=== PATIENT | male | born 1935 | race Caucasian/White ===

== ENCOUNTER → 2021-01-19 | Outpatient (CLI) | payer MEDICARE, SELFPAY ==
--- NOTE | 2021-01-19 08:00 | PROSBIL_PTH ---
PATIENT: LISA WEAVER LOC: [facility] U#:[id number] AGE/SX: 85/M ROOM: RE01/19/[address]: Dr. Speedy Royal MD : 1935 BED: DIS: 01/19/2021 SPEC #: [id number] RECD: 01/19/21 10:34 STATUS: FRANCK RETiffany #: [id number] BRANDON: 01/19/21 08:[address]: Speedy Royal DEPT: SURGICAL PATHOLOGY RECD BY: Yuko Aly Tissues: A - PROSTATE RIGHT B - PROSTATE RIGHT C - PROSTATE RIGHT D - PROSTATE LEFT E - PROSTATE LEFT F - PROSTATE LEFT Procedures: PROSTATE BX HEADER OPERATION: Prostate biopsy PRE-OP DIAGNOSIS: R97.20 TISSUE SUBMITTED: A - Right apex, B - Right mid, C - Right base, D - Left apex, E - Left mid, F - Left base MICROSCOPIC DIAGNOSIS A. Right prostate, apex, core biopsy: Prostatic tissue, negative for malignancy. Focal minimal acute and chronic inflammation. B. Right prostate, mid, core biopsy: Focal high-grade prostatic intraepithelial neoplasia (HGPIN). C. Right prostate, base, core biopsy: Prostatic tissue, negative for malignancy. D. Left prostate, apex, core biopsy: Prostatic tissue, negative for malignancy. E. Left prostate, mid, core biopsy: Prostatic tissue, negative for malignancy. F. Left prostate, base, core biopsy: Focal high-grade prostatic intraepithelial neoplasia (HGPIN). SJ:bashir 01/23/2021 MICROSCOPIC DESCRIPTION Slides are reviewed. GROSS DESCRIPTION A - Received is one container designated prostate, right apex. The specimen consists of one elongated fragment of light bernard-white soft tissue measuring 1 cm in length and 0.1 cm in diameter. The specimen is totally submitted in one cassette. B - Received is one container designated prostate, right mid. The specimen consists of one elongated fragment of light bernard-white soft tissue measuring 0.5 cm in length and 0.1 cm in diameter. The specimen is totally submitted in one cassette. C - Received is one container designated prostate, right base. The specimen consists of one elongated fragment of light bernard-white soft tissue measuring 0.5 cm in length and 0.1 cm in diameter. The specimen is totally submitted in one cassette. D - Received is one container designated prostate, left apex. The specimen consists of one elongated fragment of light bernard-white soft tissue measuring 0.5 cm in length and 0.1 cm in diameter. The specimen is totally submitted in one cassette. E - Received is one container designated prostate, left mid. The specimen consists of one elongated fragment of light bernard-white soft tissue measuring 0.8 cm in length and 0.1 cm in diameter. The specimen is totally submitted in one cassette. F - Received is one container designated prostate, left base. The specimen consists of one elongated fragment of light bernard-white soft tissue measuring 0.7 cm in length and 0.1 cm in diameter. The specimen is totally submitted in one cassette. / ABHILASH:bashir 01/19/21 TC:5 CPT: G0146
== END | disposition home or self-care (01) ==
LOC: LABSPEC 12:06
PROVIDERS: Referring Provider Urology; Visit Provider Urology
DX: R97.20 Elevated prostate specific antigen [PSA] (principal)
CPT/HCPCS: 88305; G0416

== ENCOUNTER 2022-05-24 07:26 | Day surgery (SDC) | payer MEDICARE, SELFPAY ==
[2022-05-24] VITALS (7 sets, daily range): BP systolic 133–160; BP diastolic 56–74; PULSE 45–50; RESP 16; TEMP 36.6–37; O2SAT 100; BMI 20.5
[2022-05-24] MEDS: Lactated Ringers 1,000 ML 15 ML IV (08:17)
--- NOTE | 2022-05-24 08:30 | COLBX_PTH ---
PATIENT: LISA WEAVER LOC: [facility] U#:[id number] AGE/SX: 86/M ROOM: RE05/24/[address]: Dr. Ruben Young MD : 1935 BED: DIS: 05/24/2022 SPEC #: [id number] RECD: 05/24/22 13:22 STATUS: FRANCK ARIANA #: [id number] BRANDON: 05/24/22 08:[address]: Ruben Young DEPT: SURGICAL PATHOLOGY RECD BY: Yuko Aly ENTERED: 05/24/22 13:47 SP TYPE: COLON BX OTHR DR: Dr. Ruben Lovell MD Tissues: A - Cecum, NOS B - Ascending colon C - Sigmoid colon biopsy Procedures: Surgery Specimen Level IV HEADER OPERATION: Colonoscopy (MAC), polypectomy, biopsy PRE-OP DIAGNOSIS: Unintentional weight loss, history of melena, diverticulosis, heartburn TISSUE SUBMITTED: A ? Cecal polyp biopsy, B ? Ascending colon polyp, C ? Sigmoid colon polyp biopsy MICROSCOPIC DIAGNOSIS A. Cecal polyp, biopsy: Tubular adenoma. B. Ascending colon polyp, biopsy: Tubular adenoma. Fragments of hyperplastic polyp. C. Sigmoid colon polyp, biopsy: Hyperplastic polyp. AM:bashir 05/25/2022 MICROSCOPIC DESCRIPTION Slides are reviewed. GROSS DESCRIPTION A - Received in fixative is one container labeled with the patient's name and designated cecal polyp biopsy. The specimen consists of two irregular fragments of light bernard soft tissue that in aggregate measure 0.5 x 0.3 x 0.1 cm. The specimen is totally submitted in one cassette. B - Received in fixative is one container labeled with the patient's name and designated ascending colon biopsy. The specimen consists of multiple irregular fragments of light bernard soft tissue that in aggregate measure 1.8 x 0.5 x 0.2 cm. The specimen is totally submitted in one cassette. C - Received in fixative is one container labeled with the patient's name and designated sigmoid colon polyp biopsy. The specimen consists of one irregular fragment of light bernard soft tissue that measures 0.4 x 0.3 x 0.1 cm. The specimen is totally submitted in one cassette. / ABHILASH:bashir 05/24/2022 TC:5 CPT: 39619 x3
--- NOTE | 2022-05-24 09:05 | PCM.HP.BLA ---
History and Physical Date of Admission: 05/24/22 Date of Service:? 04/10/22 MR#: [id number] Acct: [id number] Name:LISA LAWRENCE Rep #: [id number] : 1935 ? ? Provider: Dr. Ruben Young MD Age/Sex:? 86/M ? ? Location: [facility] Status: Signed Intake Vital Signs ? 04/10/2213:09 Weight: 150 lb 6 oz BP 174/71 H Blood Pressure Location Rt brachial Position Sitting Respiration 17 Pulse 58 L Pulse Source Monitor Temp 97.6 F L Temp Source Oral Pulse Oximetry (%) 97 Oxygen Delivery Method room air Intake Visit Reasons:?COLONOSCOPY Chief Complaint: colonoscopy Is patient in pain?: No Allergies Penicillins Allergy (Intermediate, Verified 04/10/22 13:10) RashSulfa (Sulfonamide Antibiotics) Allergy (Intermediate, Verified 04/10/22 13:10) Other Medications amlodipine 5 mg tablet 5 mg PO DAILY 03/06/22 [History Confirmed 04/10/22] aspirin 325 mg tablet 325 mg PO DAILY 03/06/22 [History Confirmed 04/10/22] finasteride 5 mg tablet 5 mg PO DAILY 03/06/22 [History Confirmed 04/10/22] lisinopril 20 mg tablet 20 mg PO DAILY 03/06/22 [History Confirmed 04/10/22] sildenafil (pulm.hypertension) 20 mg tablet 20 mg PO TID 03/06/22 [History Confirmed 04/10/22] PFSH Medical History? Benign prostate hyperplasia CKD (chronic kidney disease) Elevated PSA Erectile dysfunction HTN (hypertension) Osteoarthritis Polyneuropathy, unspecified Unexplained weight loss Family History?(Updated 04/10/22 @ 13:09 by Sally Mccrary) Mother Breast cancer CVA (cerebral vascular accident)Father CVA (cerebral vascular accident) Social History? Smoking Status:? Former smoker Smokeless tobacco user:? chewing tobacco alcohol intake:? never HPI HPI HPI: Patient is a 86-year-old male who presents for need to schedule screening/diagnostic colonoscopy secondary to duration since prior colonoscopy but also some weight loss and possible melena.? They are referred for surgical consultation from Dr. Lovell.? Patient had prior colonoscopy 10 years ago.? Mr. Faust states that he is not exactly sure what the results were but was pretty sure things turned out alright.? Patient has no personal history of colon polyps, inflammatory bowel disease, or diverticulitis. They describe their bowel habits as normal.? They have approximately 1 bowel movement per day and spend roughly less than 10 minutes on the toilet without significant straining.? They have not noticed bright red blood per rectum, but possibly have noticed dark stools.? They do not regularly take fiber supplements.? They [do/do not] consume significant fiber in their regular diet. Patient has no family history of colon cancer, inflammatory bowel disease, or diverticulitis.? ? The patient's weight is not stable.? He reports that this past fall (of 2021) he experienced an unintentional weight loss of some 23 to 33 pounds.? Today he weighs 150 pounds and states that this is nearly a complete regain from his baseline at 160 pounds.? Regarding this weight loss he states that he was eating less and simply had a poor appetite with early feelings of fullness. The patient is not prescribed anticoagulants/blood thinners. Relevant prior abdominal surgical history includes: Prior drainage procedure for a abdominal wall abscess (latter documentation suggested this involved the right colon) Patient does have a significant history of GERD and heartburn.? Patient states that is primarily been heartburn.? He experiences the symptoms roughly 1 time per week.? He manages them by taking [id number] pills.? He is unaware of what foods may trigger the symptoms and therefore is not restricting anything from his diet.? Specifically, he reports that he likes to eat spaghetti.? He confirms a history of an EGD performed alongside of his colonoscopy 10 years ago. ROS General General: Yes weight change and fatigue HEENT HEENT: Yes eye surgery Endo Endocrine: No thyroid disease, diabetes mellitus, thyroid cancer, Hair loss, heat intolerance or cold intolerance Skin Skin: No rash or changing moles Musc Musculoskeletal: Yes arthritis; No back problems, rheumatoid arthritis, gout or joint pain Cardio Cardiovascular: Yes high blood pressure; No murmur, pacemaker, heart disease, atrial fibrillation, heart attack, heart stent, palpitations, shortness of breat with exertion or chest pain Psych Psychiatric: No depression, anxiety or hearing voices Resp Respiratory: No shortness of breath, No sleep apnea, Yes cough, No COPD, No asthma, No emphysema and No wheezing Gastro Gastrointestinal: No abdominal pain, No nausea or vomiting, No diarrhea, No constipation, No blood in stool, Yes acid reflux, No hemorrhoids, No ulcers, No gallbladder problem and No black,tarry stools Jackson Hematologic: No blood thinners, No blood disorders, No bleeding, No anemia and No blood clots Neuro Neurologic: Yes numbness Exam Const General: cooperative and other (Slow to respond) Nutritional Appearance: thin Orientation: alert, awake and oriented x3 Resp Effort & Inspection: normal respiratory effort Cardio Rate: regular rate GI Other: Transverse incision over left lower quadrant and a smaller scar over the right mid abdomen that appears as a healed drainage tract.? No obvious hernia.? Patient is soft and nontender to palpation x4 quadrants. Assessment and Plan Assessment and Plan (1) Unintentional weight loss: ?Status:?Acute ?Comment: This is an 86-year-old, relatively healthy, male who presents for possible update of his colonoscopy exams.? He has a recent past history of approximately 23 to 33 pound unintentional weight loss.? Fortunately he has managed to regain the majority of this weight loss.? However, alongside of this he reports occasional dark tarry stools.? He has a history of diagnostic colonoscopy and EGD performed 05/10/[address] Paz which found evidence of pancolonic diverticulosis, but no other significant colonic pathology.? With this history I have recommended proceeding for diagnostic colonoscopy.? While patient expresses reluctance, he states that he will go along with what ever recommendation I have.? We briefly discussed that he would require a bowel prep and a electric truck driver for the day of the procedure.? He expresses understanding of this information as well and will work to secure a ride. ?Plan: Plan will be to complete colonoscopy on first mutually agreeable date under local MAC.? Pre-procedure prep discussed and paper instructions provided.? Patient is also made aware that he will need to have a electric truck driver with him the day of the procedure. (2) History of melena: ?Status:?Acute (3) Diverticulosis: ?Status:?Acute (4) History of heartburn: ?Status:?Acute ?Comment: Patient has a history of EGD with biopsy on 05/10/2011.? According to the original procedure report patient had findings of bile reflux and mild gastritis with possible recent hemorrhage.? Additionally defined was a 3 cm hiatal hernia.? Empiric biopsies were taken of the squamocolumnar junction.? At this time I do not have the final pathology on these biopsies.? However, patient not reporting significant symptoms 10 years later and states that he manages his symptoms symptomatically with [id number]-rvdrism agents.? Therefore I do not find a strong cause to pursue EGD at this time and will look for pathology from above biopsies. I have examined the patient and the H&P has been reviewed. There are no clinical changes since date of exam. Patient confirms that he complete his prep for today's procedure. Has had no further dark stools. Plan to proceed for diagnostic colonoscopy as discussed further above.
--- NOTE | 2022-05-24 10:04 | EKG12_ITS ---
Test Reason : Blood Pressure : / mmHG Vent. Rate : 046 BPM Atrial Rate : 066 BPM P-R Int : 000 ms QRS Dur : 154 ms QT Int : 498 ms P-R-T Axes : 076 -78 040 degrees QTc Int : 435 ms Sinus bradycardia Right bundle branch block Left anterior fascicular block Bifascicular block Septal infarct , age undetermined Abnormal ECG No previous ECGs available Confirmed by BARBIE VENTURA, [facility] ([id number]), web editor MEL BELLO ([id number]) on 05/28/2022 12:48:03 PM Referred By: Ruben Lovell Confirmed By:UMM VALENTIN MD
--- NOTE | 2022-05-24 10:05 | OP.COLON_ITS ---
Patient Name: Leland Faust Procedure Date: 05/24/2022 8:47 AM Date of : 1935 Age: 86 Procedure: Colonoscopy Indications: Melena, Weight loss Providers: Ruben Young MD Medicines: Monitored Anesthesia Care Patient Profile: Refer to note in patient chart for documentation of history and physical. Last Colonoscopy: more than 10 years ago. Complications: No immediate complications. Estimated blood loss: Minimal. Procedure: Pre-Anesthesia Assessment: - The heart rate, respiratory rate, oxygen saturations, blood pressure, adequacy of pulmonary ventilation, and response to care were monitored throughout the procedure. After I obtained informed consent, the scope was passed under direct vision. Throughout the procedure, the patient's blood pressure, pulse, and oxygen saturations were monitored continuously. The pediatric colonoscope was introduced through the anus and advanced to the cecum, identified by the appendiceal orifice, IC valve and transillumination. The colonoscopy was technically difficult and complex due to multiple diverticula in the colon and a tortuous colon. Successful completion of the procedure was aided by withdrawing and reinserting the scope. The patient tolerated the procedure well. The quality of the bowel preparation was adequate. Scope In: 9:08:02 AM Scope Withdrawal Time 0 hours 25 minutes 41 seconds Scope Out: 9:54:55 AM Total Procedure Duration Time 0 hours 46 minutes 53 seconds Findings: Many small and large-mouthed diverticula were found in the entire colon. No biopsies or other specimens were collected for this exam. A 4 mm polyp was found in the cecum. The polyp was semi-sessile. Biopsies were taken with a cold forceps for histology. Estimated blood loss was minimal. A 8 mm polyp was found in the ascending colon. The polyp was semi-pedunculated. The polyp was removed with a hot snare. Resection and retrieval were complete. Estimated blood loss was minimal. A 3 mm polyp was found in the sigmoid colon. The polyp was sessile. Biopsies were taken with a cold forceps for histology. The retroflexed view of the distal rectum and anal verge was normal and showed no anal or rectal abnormalities. Impression: - Diverticulosis in the entire examined colon. No specimens collected. - One 4 mm polyp in the cecum. Biopsied. - One 8 mm polyp in the ascending colon, removed with a hot snare. Resected and retrieved. - One 3 mm polyp in the sigmoid colon. Biopsied. - The distal rectum and anal verge are normal on retroflexion view. Recommendation: - Discharge patient to home (via wheelchair). - High fiber diet today. - Continue present medications. - Await pathology results. - Repeat colonoscopy is not recommended due to current age (66 years or older). - Telephone my office for pathology results in 1 week. Procedure Code(s): --- Professional --- 59681, Colonoscopy, flexible; with removal of tumor(s), polyp(s), or other lesion(s) by snare technique 28995, 59, Colonoscopy, flexible; with biopsy, single or multiple Diagnosis Code(s): --- Professional --- D12.0, Benign neoplasm of cecum D12.2, Benign neoplasm of ascending colon D12.5, Benign neoplasm of sigmoid colon K92.1, Melena (includes Hematochezia) R63.4, Abnormal weight loss K57.30, Diverticulosis of large intestine without perforation or abscess without bleeding CPT copyright 2017 [employer]. All rights reserved. The codes documented in this report are preliminary and upon primary care nurse practitioner review may be revised to meet current compliance requirements. Ruben Young MD 05/24/2022 10:05:14 AM This report has been signed electronically. Number of Addenda: 0 Note Initiated On: 05/24/2022 8:47 AM
--- NOTE | 2022-05-24 10:07 | SUR.PHASEI ---
102-LEAD EKG SHOWS BIFASICULAR BLOCK w/ BBB AND OTHER FINDINGS, DR MEJIA NOTIFIED SO HE MAY REVIEW. DENIES ANY CHEST PAIN, SOB, DIFFICULTY BREATHING, REFERRED PAIN, NAUSEA, OTHER C/O. PATIENT STATES HE'S BEEN TOLD IN THE PAST THAT HE HAS AN IRREGULAR HEART RATE.
== END 2022-05-24 10:57 | disposition home or self-care (01) ==
LOC: EN 07:29 → AC 07:30
PROVIDERS: PCP Family Medicine; Referring Provider Family Medicine; Visit Provider Surgery
PROC: 0DJD8ZZ Inspection of Lower Intestinal Tract, Via Natural or Artificial Opening Endoscopic (ICD-10-PCS; CPT 45378; principal; 2022-05-24 08:25)
DX: D12.0 Benign neoplasm of cecum (principal); K44.9 Diaphragmatic hernia without obstruction or gangrene; R63.4 Abnormal weight loss; K57.30 Diverticulosis of large intestine without perforation or abscess without bleeding; Z87.891 Personal history of nicotine dependence; I12.9 Hypertensive chronic kidney disease with stage 1 through stage 4 chronic kidney disease, or unspecified chronic kidney disease; N18.9 Chronic kidney disease, unspecified; K21.9 Gastro-esophageal reflux disease without esophagitis; K92.1 Melena; D12.2 Benign neoplasm of ascending colon; R00.1 Bradycardia, unspecified; I45.2 Bifascicular block; R94.31 Abnormal electrocardiogram [ECG] [EKG]; Z87.19 Personal history of other diseases of the digestive system
CPT/HCPCS: 45385; 45380; 88305; 93005; J7120; J2405

== ENCOUNTER → 2023-01-09 | Outpatient (CLI) | payer MEDICARE, SELFPAY ==
[2023-01-13 22:06] LABS: Calprotectin, Stool 59 ug/g (0-120)
[2023-01-19 18:07] LABS: Pancreatic Elastase, Fecal 60 (>200)
== END | disposition home or self-care (01) ==
PROVIDERS: PCP Family Medicine; Referring Provider Internal Medicine Gastroenterology; Visit Provider Internal Medicine Gastroenterology
DX: R63.4 Abnormal weight loss (principal); K58.9 Irritable bowel syndrome, unspecified
CPT/HCPCS: 82653; 83630; 83993; 87177; 87209; 87329; 87493

== ENCOUNTER → 2023-07-11 | Outpatient (CLI) | payer MEDICARE, SELFPAY ==
[2023-07-16 14:09] LABS: Pancreatic Elastase, Fecal 158 (>200)
== END | disposition home or self-care (01) ==
LOC: LAB 11:00 → LABSPEC 11:03
PROVIDERS: PCP Family Medicine; Referring Provider Internal Medicine Gastroenterology; Visit Provider Internal Medicine Gastroenterology
DX: K86.81 Exocrine pancreatic insufficiency (principal)
CPT/HCPCS: 82653